=== PATIENT | female | born 1955 | race Caucasian/White ===

== ENCOUNTER 2017-04-24 11:13 | Outpatient (CLI) | payer BC ==
[~2017-04-24 11:13] MED LIST: HYZAAR; TRICOR
== END 2017-04-24 21:09 | disposition home or self-care (01) ==
LOC: SRD 11:13
PROVIDERS: ATTEND Internal Medicine
DX: Z01.818 Encounter for other preprocedural examination (principal); J32.9 Chronic sinusitis, unspecified
CPT/HCPCS: 71020-TC; 93005

== ENCOUNTER 2017-05-01 12:25 | Day surgery (SDC) | payer BC ==
[~2017-05-01] VITALS: Ht 152.4 cm; Wt 63.5 kg
[2017-05-01] MEDS ORDERED: LevALBUTEROL HCL 1.25 MG/0.5 ML *CONC.* VIAL.NEB (XOPENEX CONC.) INH ONE ×2 (13:45→13:46)
[2017-05-01] MEDS ORDERED: ROCURONIUM BROMIDE 10 MG/ML (ZEMURON) IV ONE (14:45)
[2017-05-01] MEDS ORDERED: NS IRRIG SOLN 1000 ML IR ONE (14:45)
[2017-05-01] MEDS ORDERED: PROPOFOL 200MG/ 20ML VIAL (DIPRIVAN) IV ONE (14:45)
[2017-05-01] MEDS ORDERED: MIDAZOLAM HCL 5 MG/5 ML VIAL IVP ONE (14:45)
[2017-05-01] MEDS ORDERED: fentaNYL CITRATE 250 MCG/5 ML AMP IV ONE (14:45)
[2017-05-01] MEDS ORDERED: DEXAMETHASONE SOD PHOSPHATE 4 MG/ML VIAL IVP ONE (14:45)
[2017-05-01] MEDS ORDERED: WATER FOR IRRIGATION,STERILE 1,000 ML IRRIG.SOLN IR ONE (14:45)
[2017-05-01] MEDS ORDERED: ONDANSETRON HCL 4 MG/2 ML VIAL IVP ONE (14:45)
[2017-05-01] MEDS ORDERED: D5/0.45 NS 1,000 ML IV.SOLN IV ONE (14:45)
[2017-05-01] MEDS ORDERED: OXYMETAZOLINE HCL 0.05% NASAL SPRAY NS ONE (14:45)
[2017-05-01] MEDS ORDERED: SEVOFLURANE 15 MIN GAS INH ONE (14:45)
[2017-05-01] MEDS ORDERED: NS 1000 ML BAG IV ONE (14:45)
[2017-05-01] MEDS ORDERED: LIDOCAINE/EPI 1% 1:100000 20 ML VIAL INJ ONE (14:45)
[2017-05-01] MEDS ORDERED: CEFAZOLIN 1 GM IVPB PREMIX 50 ML IV ONE (14:45)
[2017-05-01] MEDS ORDERED: ATROPINE SULFATE 0.4 MG/ML VIAL IVP ONE (14:45)
[2017-05-01] MEDS ORDERED: KETOROLAC TROMETHAMINE 30 MG VIAL IVP ONE (14:45)
[2017-05-01] MEDS ORDERED: LR 1,000 ML IV SCH (15:49)
[2017-05-01] MEDS ORDERED: HYDROmorphone 1 MG INJ. 1 MG/ML AMPUL IVP PRN (16:00)
[2017-05-01] MEDS ORDERED: MEPERIDINE HCL/PF 25 MG/ML DISP.SYRIN IVP PRN (16:00)
[2017-05-01] MEDS ORDERED: HYDROmorphone 2 MG/ML VIAL IVP PRN ×2 (16:00)
[2017-05-01 17:55] VITALS: BP_SYST 140
== END 2017-05-01 18:00 | disposition home or self-care (01) ==
LOC: SMU 12:25 → SOR 12:25
PROVIDERS: ATTEND Otolaryngology
DX: J34.2 Deviated nasal septum (principal); J32.9 Chronic sinusitis, unspecified; J34.89 Other specified disorders of nose and nasal sinuses; I10 Essential (primary) hypertension; E11.610 Type 2 diabetes mellitus with diabetic neuropathic arthropathy; E66.3 Overweight; Z87.891 Personal history of nicotine dependence; E78.5 Hyperlipidemia, unspecified; E54 Ascorbic acid deficiency
CPT/HCPCS: 30140; 30520; 31295; 82962; 88305; 88311; 94640; C1726; J0461; J0690; J1100; J1885; J2250; J2405; J2704; J3010; J7030; J7120

== ENCOUNTER 2023-09-08 09:38 | Outpatient (CLI) | payer OTHER, MEDICARE | END 2023-09-08 20:47 | disposition home or self-care (01) | LOC: SCA 09:38 | PROVIDERS: ATTEND Internal Medicine | DX: I08.0 Rheumatic disorders of both mitral and aortic valves (principal); R94.31 Abnormal electrocardiogram [ECG] [EKG] | CPT/HCPCS: 93005; 93306 ==